=== PATIENT | male | born 1990 | race Caucasian/White ===

== ENCOUNTER 2017-11-08 21:36 | Emergency (ER) | payer BC ==
[~2017-11-08] VITALS: Ht 170.2 cm; Wt 104.6 kg
[~2017-11-08 21:36] MED LIST: BACT800T5 PO
[2017-11-08 21:40] VITALS: BP 129/81; PULSE 91; RESP 18; TEMP 97.9; O2SAT 97
[2017-11-08] MEDS ORDERED: SODIUM CHLOR 0.9% 1000 ML INJ 1,000 ML IV ONE ×2 (22:15→23:00)
[2017-11-08 22:20] LABS: BILIRUBIN, URINE NEG (NEG); BLOOD, URINE NEG (NEG); GLUCOSE,URINE NEG (NEG); KETONE, URINE NEG (NEG); NITRITE,URINE NEG (NEG); URINE COLOR YELLOW (YELLW/STRAW); URINE LEUKOCYTE ESTERASE NEG (NEG)
[2017-11-08 22:22] LABS: AUTOMATED NEUTROPHIL # 5.9 TH/MM3 (1.8-7.7); BASOPHIL # 0.1 TH/MM3 (0-0.2); BASOPHIL % 0.7 % (0.0-2.0); EOSINOPHIL # 0.1 TH/MM3 (0-0.4); EOSINOPHIL % 1.4 % (0.0-4.0); HEMATOCRIT 47.7 % (39.0-51.0); HEMOGLOBIN 16.6 GM/DL (13.0-17.0); LYMPH % 24.2 % (9.0-44.0); LYMPHOCYTE # 2.1 TH/MM3 (1.0-4.8); MEAN CELL VOLUME 85.5 FL (80.0-100.0); MEAN CORPUSCULAR HEMOGLOBIN 29.7 PG (27.0-34.0); MEAN CORPUSCULAR HGB CONC 34.8 % (32.0-36.0); MEAN PLATELET VOLUME 8.5 FL (7.0-11.0); MONO % 8.2 % (0.0-8.0); MONOCYTE # 0.7 TH/MM3 (0-0.9); NEUT % 65.5 % (16.0-70.0); PLATELET COUNT 236 TH/MM3 (150-450); RED BLOOD COUNT 5.57 MIL/MM3 (4.50-5.90); WHITE BLOOD COUNT 8.9 TH/MM3 (4.0-11.0)
[2017-11-08 22:26] LABS: MUCUS URINE MOD /lpf (OCC); RBC, URINE 0-3 /hpf (0-3); WBC, URINE 0-2 /hpf (0-5)
[2017-11-08 22:27] LABS: BACTERIA, URINE RARE /hpf; CHLORIDE 108 MEQ/L (98-107); SODIUM (NA) 138 MEQ/L (136-145)
[2017-11-08 22:31] LABS: ALBUMIN 4.2 GM/DL (3.4-5.0); BICARBONATE 22.6 MEQ/L (21.0-32.0); BLOOD UREA NITROGEN 13 MG/DL (7-18); CALCIUM 9.2 MG/DL (8.5-10.1); GLUCOSE,RANDOM 89 MG/DL (74-106)
[2017-11-08 22:34] LABS: ALT (GPT) 52 U/L (12-78); AST (GOT) 32 U/L (15-37); GLOMERULAR FILTRATION RATE 88 ML/MIN (>89)
[2017-11-08 22:36] LABS: TOTAL BILIRUBIN ADULT 0.5 MG/DL (0.2-1.0); TOTAL PROTEIN 7.8 GM/DL (6.4-8.2)
[2017-11-08 22:37] LABS: ALKALINE PHOSPHATASE 87 U/L (45-117)
--- NOTE | 2017-11-08 23:40 | PD ---
HPI Chief Complaint: GI Complaint Time Seen by Provider: 21:48 Travel History International Travel<30 days: No Contact w/Intl Traveler<30days: No Traveled to known affect area: No History of Present Illness HPI 27-year-old male presented ER for sudden onset of diarrhea that, patient stated that he went to the bathroom "17 times", watery diarrhea, nonbloody, foul- smelling, no abdominal pain or nausea or vomiting or fever or chills or night sweats no sick contacts or recent travel. Patient states that he had [employer] yesterday and since then has been having no symptoms or his at the bedside that seem medial but did not have any symptoms. Patient did not have previous episodes leg in the past and denies any medical history. 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) Immune Disorder: No Musculoskeletal: Yes Neurologic: Yes (DILATED CEREBRAL ARTERY) Psychiatric: No Reproductive: No Respiratory: Yes Radiation Therapy: No Past Surgical History AICD: No Arteriovenous Shunt: No Insulin Pump: No Joint Replacement: No Oral Surgery: Yes (tonsils out age 6) Pacemaker: No Tonsillectomy: Yes Other Surgery: No Social History Alcohol Use: Yes (occasional) Tobacco Use: Yes Substance Use: No Allergies-Medications (Allergen,Severity, Reaction): Coded Allergies: *MDRO Multi-Drug Resistant Organism (Verified Adverse Reaction, Unknown, ) 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 SKIN: Focused skin assessment warm/dry. HEAD: Atraumatic. Normocephalic. EYES: Pupils equal and round. No scleral icterus. No injection or drainage. ENT: No nasal bleeding or discharge. Mucous membranes pink and moist. NECK: Trachea midline. No JVD. CARDIOVASCULAR: Regular rate and rhythm. No murmur appreciated. RESPIRATORY: No accessory muscle use. Clear to auscultation. Breath sounds equal bilaterally. GASTROINTESTINAL: Abdomen soft, non-tender, nondistended. Hepatic and splenic margins not palpable. MUSCULOSKELETAL: No obvious deformities. No clubbing. No cyanosis. No edema. NEUROLOGICAL: Awake and alert. No obvious cranial nerve deficits. Motor grossly within normal limits. Normal speech. PSYCHIATRIC: Appropriate mood and affect; insight and judgment normal. Data Data Last Documented VS Vital Signs Date Time Temp Pulse Resp B/P (MAP) Pulse Ox O2 Delivery O2 Flow Rate FiO2 11/08/17 23:55 74 18 109/65 (80) 98 Room Air 11/08/17 21:40 97.9 Orders Orders Complete Blood Count With Diff (11/08/17 22:01) Comprehensive Metabolic Panel (11/08/17 22:01) Urinalysis - C+S If Indicated (11/08/17 22:01) Lipase (11/08/17 22:01) C Diff Toxin Pcr (11/08/17 22:01) Stool Wbc (Leukocytes) (11/08/17 22:01) Stool Ova And Parasite Screen (11/08/17 22:01) Giardia Antigen (Stool) (11/08/17 22:01) Sodium Chlor 0.9% 1000 Ml Inj (Ns 1000 M (11/08/17 22:15) Sodium Chlor 0.9% 1000 Ml Inj (Ns 1000 M (11/08/17 23:00) Labs Laboratory Tests Test 11/08/17 22:00 White Blood Count 8.9 TH/MM3 Red Blood Count 5.57 MIL/MM3 Hemoglobin 16.6 GM/DL Hematocrit 47.7 % Mean Corpuscular Volume 85.5 FL Mean Corpuscular Hemoglobin 29.7 PG Mean Corpuscular Hemoglobin Concent 34.8 % Red Cell Distribution Width 12.0 % Platelet Count 236 TH/MM3 Mean Platelet Volume 8.5 FL Neutrophils (%) (Auto) 65.5 % Lymphocytes (%) (Auto) 24.2 % Monocytes (%) (Auto) 8.2 % Eosinophils (%) (Auto) 1.4 % Basophils (%) (Auto) 0.7 % Neutrophils # (Auto) 5.9 TH/MM3 Lymphocytes # (Auto) 2.1 TH/MM3 Monocytes # (Auto) 0.7 TH/MM3 Eosinophils # (Auto) 0.1 TH/MM3 Basophils # (Auto) 0.1 TH/MM3 CBC Comment DIFF FINAL Differential Comment Urine Color YELLOW Urine Turbidity CLEAR Urine pH 6.0 Urine Specific Palmer GREATER/EQUAL 1.030 Urine Protein NEG mg/dL Urine Glucose (UA) NEG mg/dL Urine Ketones NEG mg/dL Urine Occult Blood NEG Urine Nitrite NEG Urine Bilirubin NEG Urine Urobilinogen 0.2 MG/DL Urine Leukocyte Esterase NEG Urine RBC 0-3 /hpf Urine WBC 0-2 /hpf Urine Bacteria RARE /hpf Urine Mucus MOD /lpf Microscopic Urinalysis Comment CULT NOT INDICATED Stool C. difficile Toxin (PCR) NEGATIVE Stl C. difficile Toxin Epiderm 027 PRESUMPTIVE NEGATIVE Blood Urea Nitrogen 13 MG/DL Creatinine 1.00 MG/DL Random Glucose 89 MG/DL Total Protein 7.8 GM/DL Albumin 4.2 GM/DL Calcium Level 9.2 MG/DL Alkaline Phosphatase 87 U/L Aspartate Amino Transf (AST/SGOT) 32 U/L Alanine Aminotransferase (ALT/SGPT) 52 U/L Total Bilirubin 0.5 MG/DL Sodium Level 138 MEQ/L Potassium Level 4.0 MEQ/L Chloride Level 108 MEQ/L Carbon Dioxide Level 22.6 MEQ/L Anion Gap 7 MEQ/L Estimat Glomerular Filtration Rate 88 ML/MIN Lipase 86 U/L [facility] Medical Decision Making Medical Screen Exam Complete: Yes Emergency Medical Condition: Yes Differential Diagnosis Infectious diarrhea, C. difficile, irritable bowel syndrome. Narrative Course 27-year-old otherwise healthy sit, vitals are stable patient is on acute distress not tachycardic, labs are within normal limits initially is negative. Stool was sent for white blood cells and other investigative work I told the patient that if anything is positive the lab will call him to come to the ER meanwhile patient improved here with IV fluids and is ready to be discharged. I discussed with the patient that if his diarrhea continue to happen for more than 1 the left the ER for further evaluation and if he ever develop fever or chills or any symptoms after, to the ER immediately patient understands and agrees to plan of care. Laboratory Tests Test 11/08/17 22:00 White Blood Count 8.9 TH/MM3 Red Blood Count 5.57 MIL/MM3 Hemoglobin 16.6 GM/DL Hematocrit 47.7 % Mean Corpuscular Volume 85.5 FL Mean Corpuscular Hemoglobin 29.7 PG Mean Corpuscular Hemoglobin Concent 34.8 % Red Cell Distribution Width 12.0 % Platelet Count 236 TH/MM3 Mean Platelet Volume 8.5 FL Neutrophils (%) (Auto) 65.5 % Lymphocytes (%) (Auto) 24.2 % Monocytes (%) (Auto) 8.2 % Eosinophils (%) (Auto) 1.4 % Basophils (%) (Auto) 0.7 % Neutrophils # (Auto) 5.9 TH/MM3 Lymphocytes # (Auto) 2.1 TH/MM3 Monocytes # (Auto) 0.7 TH/MM3 Eosinophils # (Auto) 0.1 TH/MM3 Basophils # (Auto) 0.1 TH/MM3 CBC Comment DIFF FINAL Differential Comment Urine Color YELLOW Urine Turbidity CLEAR Urine pH 6.0 Urine Specific [place] GREATER/EQUAL 1.030 Urine Protein NEG mg/dL Urine Glucose (UA) NEG mg/dL Urine Ketones NEG mg/dL Urine Occult Blood NEG Urine Nitrite NEG Urine Bilirubin NEG Urine Urobilinogen 0.2 MG/DL Urine Leukocyte Esterase NEG Urine RBC 0-3 /hpf Urine WBC 0-2 /hpf Urine Bacteria RARE /hpf Urine Mucus MOD /lpf Microscopic Urinalysis Comment CULT NOT INDICATED Stool C. difficile Toxin (PCR) NEGATIVE Stl C. difficile Toxin Epiderm 027 PRESUMPTIVE NEGATIVE Blood Urea Nitrogen 13 MG/DL Creatinine 1.00 MG/DL Random Glucose 89 MG/DL Total Protein 7.8 GM/DL Albumin 4.2 GM/DL Calcium Level 9.2 MG/DL Alkaline Phosphatase 87 U/L Aspartate Amino Transf (AST/SGOT) 32 U/L Alanine Aminotransferase (ALT/SGPT) 52 U/L Total Bilirubin 0.5 MG/DL Sodium Level 138 MEQ/L Potassium Level 4.0 MEQ/L Chloride Level 108 MEQ/L Carbon Dioxide Level 22.6 MEQ/L Anion Gap 7 MEQ/L Estimat Glomerular Filtration Rate 88 ML/MIN Lipase 86 U/L Diagnosis Primary Impression: Viral diarrhea Additional Instructions: Follow-up with primary care physician and return here if symptoms change or do not improve. Scripts No Active Prescriptions or Reported Meds Disposition: 01 DISCHARGE HOME Condition: Stable Varinder Johnson MD Nov 08, 2017 23:40
[2017-11-08 23:55] VITALS: BP 109/65; PULSE 74; RESP 18; O2SAT 98
[2017-11-09 00:45] VITALS: BP 109/69
== END 2017-11-09 00:45 | disposition home or self-care (01) ==
LOC: PHED 21:36
DX: A08.4 Viral intestinal infection, unspecified (principal); Z72.0 Tobacco use
CPT/HCPCS: 80053; 81001; 83690; 85025; 87205; 87328; 87329; 87493; 96360; 96361; 99284; J7030